=== PATIENT | male | born 1955 | race Caucasian/White ===

== ENCOUNTER 2022-01-25 17:49 | Inpatient (IN) | payer OTHER ==
[~2022-01-25] VITALS: Ht 152.4 cm; Wt 83.0 kg
--- NOTE | 2022-01-25 17:57 | NUR ---
SE LLAMA PARA TRIAGE Y NO RESPONDE
== END 2022-02-02 22:53 | disposition home or self-care (01) | DRG 417 ==
LOC: ER 17:49 → SURG 21:02
PROVIDERS: Surgery; ADMIT Internal Medicine; ATTEND Internal Medicine
PROC: BF37ZZZ Magnetic Resonance Imaging (MRI) of Pancreas (ICD-10-PCS; 2022-01-25)
PROC: BW21ZZZ Computerized Tomography (CT Scan) of Abdomen and Pelvis (ICD-10-PCS; 2022-01-25)
PROC: 0WQF4ZZ Repair Abdominal Wall, Percutaneous Endoscopic Approach (ICD-10-PCS; 2022-01-29)
PROC: 0D9W4ZZ Drainage of Peritoneum, Percutaneous Endoscopic Approach (ICD-10-PCS; 2022-01-29)
PROC: 0FT44ZZ Resection of Gallbladder, Percutaneous Endoscopic Approach (ICD-10-PCS; principal; 2022-01-29 13:00)
DX: K80.00 Calculus of gallbladder with acute cholecystitis without obstruction (principal); K65.1 Peritoneal abscess; K82.A1 Gangrene of gallbladder in cholecystitis; K42.9 Umbilical hernia without obstruction or gangrene; Z20.822 Contact with and (suspected) exposure to COVID-19